=== PATIENT | male | born 1960 | race Caucasian/White ===

== ENCOUNTER → 2018-07-09 | Outpatient (CLI) | payer OTHER ==
[~2018-07-09] MED LIST: [UNRECOGNIZED DRUG - REMARK]
--- NOTE | 2018-07-09 14:05 | PAIN ---
DATE OF SERVICE: 07/09/2018 INITIAL CONSULTATION FOR PAIN CLINIC CHIEF COMPLAINT: Neck and left upper extremity pain. HISTORY OF PRESENT ILLNESS: The patient is a 58-year-old male who presents with history of pain in the base of the neck and left shoulder since about 2014, gradually increasing, not a result of any specific injury or action he is aware of, getting worse over time. The patient describes the pain as constant now, throbbing, shooting, radiating. 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 This was in 06/12/2018 and is doing quite well postop. There is still some significant pain in the anterior throat and some postsurgical pain as well. He reports this pain, however, is very different from the pain in his shoulder and arm, which has been there since in 2014. The patient reports it is radiating into the left upper extremity, anterior shoulder, anterior biceps into the posterior deltoid and posterior shoulder as well as in the tricep region as well on the left side and in the side of the face with some tenderness in the ear at times also. The patient reports he has headaches usually in the left side, which are worse. This is exacerbated with motion of the left shoulder, carrying items, repetitive motion with the left upper extremity, reaching up above his head or weight supporting above his head. The patient reports a disability rate from 0-10, 10 being the worst and 7 in all categories, family, home responsibilities, recreation, social activity, sexual behavior, occupation, self-care and life support activities. The patient has not had any current physical therapies or other treatments, no chiropractic treatments or other exercises. He is doing some stretching of his left shoulder and arm, but it does not seem to help as he is doing that on his own. The patient is taking oxycodone 10 mg, which does help decrease the pain, it has been especially helpful with the postoperative pain from his radical neck dissection, which was a non-Hodgkin's lymphoma in the throat. PAST MEDICAL HISTORY: Significant for coronary artery disease with stent placement, cigarette smoking, arthritis, headaches, migraines, previous Non-Hodgkin's lymphoma, status post radical neck dissection as noted in 06/12/2018. Other surgeries include a foot surgery in 2003 and left knee meniscectomy in 2002. CURRENT MEDICATIONS: Include only oxycodone 10 mg p.r.n., last taken on 06/21/2018. FAMILY HISTORY: Significant for congestive heart disease, diabetes and aneurysms in his father's side. SOCIAL HISTORY: The patient does not drink alcohol, smokes about one half-pack a day for the past 30 years and continues to smoke. The patient is , has one child, living at home, lives locally in [place], [place]. The patient reports he is currently on disability, not related to his current pain issue. REVIEW OF SYSTEMS: The patient's review of systems is positive for those items mentioned in history of present illness. All systems reviewed and otherwise negative. It is complete, full and well documented on the patient's chart. PHYSICAL EXAMINATION: VITAL SIGNS: The patient's blood pressure is 118/78, pulse 67, respirations 18, temperature is 98.5 degrees Fahrenheit. Height is 6 feet 1 inch, weight is 206 pounds. GENERAL: The patient is awake, alert, oriented, appropriate, very pleasant demeanor. HEENT: Head is normocephalic, atraumatic. Extraocular movements are intact and symmetrical. Oral cavity: Mucous membranes moist and pink. Dentition is intact. NECK: Shows anterior throat supple without palpable lymphadenopathy noted. Swallow reflex symmetrical. CHEST: Shows normal with inspection. Breath sounds are clear to auscultation bilaterally. HEART: Shows S1, S2 clear. No murmurs auscultated. ABDOMEN: Soft, nontender, nondistended. No palpable organomegaly is noted. No rebound or guarding demonstrated. BACK: Shows spine grossly in the midline, normal-appearing cervical lordotic curvature, thoracic kyphotic curvature and lumbar lordotic curvature. The patient's anterior neck shows well healing surgical scar on the left side, which is slightly swollen at the area of the suture site, but no erythema, no drainage. Posterior cervical musculature shows symmetrical on inspection, with palpation shows some moderate tenderness in the inferior aspect of the cervical paraspinous musculature only on the left side and it is through into the left superior medial trapezius as well as lateral trapezius, posterior deltoid and moderate tenderness in the anterior deltoid as well on the left side. The patient has good rotational motion of cervical spine, slightly limited secondary to postoperative change in the left neck anteriorly, but good extension, full forward flexion without significant increase in pain. EXTREMITIES: The patient's upper extremities show deep tendon reflexes 2+ in the biceps and triceps tendons. Motor exam is strong with telecommunications project manager strength rated at 5/5 on the left and the right. Bicep and tricep flexion is approximately 4 on a scale of 5 left, 5/5 on the right as well. Peripheral pulses are 2+ radial distribution. No peripheral edema is noted. Upper extremities are warm and dry to touch, equal in color and appearance. The patient shows good shoulder shrug strong and intact without loss of strength on resistance bilaterally. Abduction of shoulder is 90 degrees bilaterally without loss of strength on resistance with some moderate pain in the left shoulder and arm with resistance on the left side only. IMPRESSION: This is a 58-year-old male with, 1. Approximate 3-year history of increasing pain in the base of the neck, left upper extremity in a radicular fashion as noted. 2. Recent radical neck dissection for non-Hodgkin's lymphoma. 3. Cigarette smoking. 4. Arthritis. 5. Migraine headaches. PLAN: Options were discussed with the patient including conservative medical management, physical therapy, interventional techniques. He would like to pursue interventional techniques. We discussed a cervical epidural steroid injection using description as well as anatomical models to describe the procedure. We will wait for preauthorization with patient's insurance provider. In the meantime, we will try Medrol Dosepak. The patient was given instruction as well as side effects to be aware of with medication. Also we discussed use of his oxycodone and especially in his postoperative state, currently I feel this is very appropriate that oxycodone 10 mg up to 4 tablets a day q.6 hours p.r.n. would be acceptable and appropriate for patient's safety at least through treatments with his cervical radiculopathy see if this may respond to some interventional techniques. The patient will return to clinic once preauthorization is obtained and we will plan on cervical epidural steroid injection at that time. CORAL GUDINO MD DR: ADENIKE/kristina JOB#: [id number] / [id number] bism[address] Zhou Dr.
== END | disposition home or self-care (01) ==
LOC: PNCL 07:11
PROVIDERS: ATTEND Anesthesiology
DX: M79.602 Pain in left arm (principal); M54.2 Cervicalgia; F17.210 Nicotine dependence, cigarettes, uncomplicated; G43.909 Migraine, unspecified, not intractable, without status migrainosus; M19.90 Unspecified osteoarthritis, unspecified site; I25.10 Atherosclerotic heart disease of native coronary artery without angina pectoris; Z85.72 Personal history of non-Hodgkin lymphomas; Z98.890 Other specified postprocedural states
CPT/HCPCS: 99214

== ENCOUNTER → 2018-07-22 | Outpatient (CLI) | payer OTHER ==
[~2018-07-22] MED LIST changes: +IOHEXOL 180 MG/ML 10 ML VIAL. ONE; +methylPREDNISolone ACETATE 40 MG/ML VIAL. ONE; +methylPREDNISolone ACETATE 80 MG/ML VIAL. ONE
--- NOTE | 2018-07-22 17:54 | PAIN ---
DATE OF SERVICE: 07/22/2018 PROGRESS NOTE FOR PAIN CLINIC DIAGNOSES: Cervical radiculopathy with cervical degenerative disk disease. HISTORY OF PRESENT ILLNESS: The patient is a 58-year-old male who returns for followup status post initial evaluation and preauthorization for cervical epidural steroid injection. The patient has obtained that now and would now like to proceed. He reports still significant pain in the base of the neck and shoulders, essentially worse on the left than the right. The patient reports some numbness and tingling into the hand on the left side as well. The patient reports pain is 7 on a scale of 10 at all times, average, worst and its least and is a 7 today. The patient reports it is becoming more constant, aching, shooting, sharp pain, dull and aching in the base of the neck, sometimes tingling and shooting in the left hand with some weakness in the left hand as well, but reports it does not awaken him from sleep at night, usually only noticeable with repetitive motions or lifting items at the left upper extremity or raising over his head with his hand. The patient reports no new changes. PHYSICAL EXAMINATION: VITAL SIGNS: The patient's blood pressure is 132/82, pulse 68, respirations 18, temperature 97.9 degrees Fahrenheit, height 6 feet 1 inches, weighs 207 pounds. GENERAL: The patient is awake, alert, oriented, appropriate, very pleasant demeanor. HEENT: Shows normocephalic, atraumatic. Extraocular movements intact and symmetrical. Oral cavity, mucous membranes are moist and pink. Dentition is intact. NECK: Shows anterior throat supple without palpable lymphadenopathy noted. Swallow reflex symmetrical. CHEST: Shows normal with inspection. Breath sounds clear to auscultation bilaterally. HEART: Shows S1, S2 clear. No murmurs auscultated. ABDOMEN: Soft, nontender, nondistended. No palpable organomegaly is noted. No rebound or guarding demonstrated. BACK: Shows spine grossly in the midline. Cervical paraspinous muscle shows symmetrical on inspection, with palpation shows some moderate tenderness, but only diffusely without radiation. The patient's neck shows good rotational motion both laterally as well as extension and flexion without significant tenderness. EXTREMITIES: The patient's upper extremities show deep tendon reflexes 2+ in the biceps and triceps tendons. Motor exam is strong with approximately 5/5 parts sales advisor strength bilaterally and 4/5 in biceps, triceps on the left with 5/5 on the right. Peripheral pulses are 2+ radial. No peripheral edema is noted. Options were discussed with the patient. The patient's old chart was reviewed as his current medication regimen updated. Current review of systems updated today as well. We will proceed with a cervical epidural steroid injection today with fluoroscopic guidance. Risks were again discussed including, but not limited to bleeding, infection, possibility of epidural hematoma and subsequent neurological compromise, dural puncture, headaches, spinal cord and/or nerve damage, side effects of steroid medication and poor results regarding pain control. The patient understands and wished to proceed. The patient to return to clinic in approximately 2 weeks for followup, was counseled on return appointment, activity level and side effects to be aware of. DIAGNOSES: Cervical radiculopathy with cervical degenerative disk disease. PROCEDURE: Cervical epidural steroid injection, translaminar approach C6-C7 level using C-arm fluoroscopic guidance under sterile prep and drape using local anesthetic. MEDICATION INJECTED: A total of 120 mg Depo-Medrol plus 5 mL of preservative-free normal saline and 2 mL of Isovue for contrast. CONDITION AT DISCHARGE: Stable. The patient tolerated the procedure well, had no complications. CORAL GUDINO MD DR: ADENIKE/kristina JOB#: [id number] / [id number]
== END | disposition home or self-care (01) ==
LOC: PNCL 09:32
PROVIDERS: ATTEND Anesthesiology
DX: M50.123 Cervical disc disorder at C6-C7 level with radiculopathy (principal); Z88.5 Allergy status to narcotic agent
CPT/HCPCS: 62321; J1030; J1040; Q9965

== ENCOUNTER → 2018-09-03 | Outpatient (CLI) | payer OTHER ==
--- NOTE | 2018-09-03 11:29 | PAIN ---
DATE OF SERVICE: 09/03/2018 DIAGNOSES: Cervical radiculopathy with cervical degenerative disc disease. HISTORY OF PRESENT ILLNESS: The patient is a 58-year-old male who returns for followup status post cervical epidural steroid injection x 1. The patient reports only about 20% improvement in the pain in the neck and headaches, but the left shoulder is doing much better, about 75% improved. The patient reports still having significant headaches daily, they have been very severe, review from the last 4 days have been very much more noticeable. The patient is starting immunotherapy for a throat cancer, has had one treatment. The patient reports his pain now is in the base of the neck, left shoulder, left side of the head and face; aching, sharp, dull, tight, shooting, stabbing, radiating, becoming more constant, severe, nonbearable, went into the left upper extremity to a moderate extent. The patient reports it is a 10 on a scale of 10 at its worst, 8 on average, 7 at its least and is 8 today. The patient reports no new motor or sensory deficits, no new changes. It wakes him from sleep occasionally, not every night. Reports the headache getting more intense and more frequent. He is taking oxycodone as the only treatment for the headache at this time. The patient reports he did feel better for about 3 days in the headaches as well after his last shot. PHYSICAL EXAMINATION: VITAL SIGNS: The patient's blood pressure is 115/78, pulse 56, respirations 16, temperature 97.7 degrees Fahrenheit, weight is 203 pounds. GENERAL: The patient is awake, alert, oriented, appropriate, very pleasant demeanor. HEENT: Head shows normocephalic, atraumatic. Extraocular movements are intact and symmetrical. Oral cavity, mucous membranes are moist and pink. Dentition is intact. NECK: Shows anterior throat supple without palpable lymphadenopathy noted. Swallow reflex is symmetrical. CHEST: Shows normal on inspection. Breath sounds clear to auscultation bilaterally. HEART: Shows S1, S2 clear. No murmurs auscultated. ABDOMEN: Soft, nontender, nondistended. No palpable organomegaly is noted. No rebound or guarding demonstrated. BACK: Shows spine grossly in the midline. Normal-appearing cervical lordotic curvature, thoracic kyphotic curvature. Cervical paraspinous muscle shows symmetrical on inspection; with palpation shows some moderate tenderness in the inferior aspect of the cervical paraspinous musculature on the left greater than the right as well as in the superior medial trapezius on the left, but not the right. No atrophy, hypertrophy, no trigger points. The patient has good rotational motion of cervical spine, both laterally as well as extension and flexion without significant difficulty. EXTREMITIES: The patient's upper extremities show deep tendon reflexes at 2+ in the biceps and triceps tendons. Motor exam is strong with 5/5 [employer] cross executive director strength bicep and tricep flexion. Peripheral pulses are 1+ posterior tibia. No peripheral edema is noted bilaterally. Options were discussed with the patient. The patient's old chart was reviewed as was his current medication regimen updated. Current review of systems updated today as well. We will proceed with a second in this series of cervical epidural steroid injection today with fluoroscopic guidance. Risks were again discussed including, but not limited to bleeding, infection, possibility of epidural hematoma and subsequent neurological compromise, dural puncture, headaches, spinal cord and/or nerve damage, side effects of steroid medication and poor results regarding pain control. The patient understands and wished to proceed. The patient will return to the clinic in approximately 2 weeks for followup, was counseled on return appointment, activity level and side effects to be aware of. DIAGNOSIS: Cervical radiculopathy with cervical degenerative disk disease. PROCEDURE: Cervical epidural steroid injection, translaminar approach C6-C7 level using C-arm fluoroscopic guidance under sterile prep and drape using local anesthetic. MEDICATION INJECTED: A total of 120 mg Depo-Medrol plus 5 mL of preservative-free normal saline and 2 mL of Isovue for contrast. CONDITION AT DISCHARGE: Stable. The patient tolerated the procedure well, had no complications. CORAL GUDINO MD DR: ADENIKE/kristina JOB#: [id number] / [id number]
== END | disposition home or self-care (01) ==
LOC: PNCL 09:02
PROVIDERS: ATTEND Anesthesiology
DX: M50.123 Cervical disc disorder at C6-C7 level with radiculopathy (principal); Z88.5 Allergy status to narcotic agent; Z88.6 Allergy status to analgesic agent
CPT/HCPCS: 62321; J1030; J1040; Q9965